=== PATIENT | female | born 1970 | race Caucasian/White ===

== ENCOUNTER 2016-06-17 11:50 | Emergency (ER) | payer OTHER ==
[2016-06-17 13:56] VITALS: BP 141/62
--- NOTE | 2016-06-17 14:24 | UC ---
Hand/Wrist HPI - HPI Summary HPI Summary: While cleaning up broken glass and debris, leaned against wall and thinks a shard of glass went through thick work glove and into L hand. Has bruised area and PW at base of L 4th MC on palm. Tried soaking the hand but still feels very sharp sensation with movement of L 4th finger and hand use, worried about FB. - History Of Current Complaint Chief Complaint: UCUpperExtremity Stated Complaint: GLASS IN HAND Time Seen by Provider: 06/17/16 14:00 Hx Obtained From: Patient Hx Last Menstrual Period: 06/16/16 ?: No Onset/Duration: Sudden Onset Severity Initially: Mild Severity Currently: Mild Character Of Pain: Sharp Aggravating Factor(s): Movement Alleviating: Rest Associated Signs And Symptoms: Positive: Bruising Related History: Dominant Hand Right - Allergies/Home Medications Allergies/Adverse Reactions: Allergies Allergy/AdvReac Type Severity Reaction Status Date / Time NSAIDs Allergy Anaphylatic Verified 06/17/16 13:57 Shock Shellfish Allergy Allergy Anaphylatic Verified 06/17/16 13:56 Shock IV CONTRAST Allergy Anaphylatic Uncoded 06/17/16 13:56 Shock Home Medications: Home Medications Sertraline HCl [Zoloft] 100 mg PO DAILY 06/17/16 [History Confirmed 06/17/16] PMH/Surg Hx/FS Hx/Imm Hx Endocrine History Of: Reports: Thyroid Disease - [facility] Cancer History Of: Denies: Breast Cancer - Surgical History Surgical History: None - Family History Known Family History: Positive: Diabetes - Social History Occupation: Employed Full-time - works in office setting Alcohol Use: Rare Substance Use Type: None Smoking Status (MU): Never Smoked Tobacco Review of Systems Constitutional: Negative Skin: Other - PW L palm Eyes: Negative ENT: Negative Respiratory: Negative Cardiovascular: Negative Gastrointestinal: Negative Genitourinary: Negative Motor: Negative Neurovascular: Negative Musculoskeletal: Negative Neurological: Negative Psychological: Negative All Other Systems Reviewed And Are Negative: Yes Physical Exam Triage Information Reviewed: Yes Appearance: Well-Appearing, Well-Nourished, Pain Distress - with Vital Signs: Initial Vital Signs Temp 97.5 F 06/17/16 13:53 Pulse 67 06/17/16 13:53 Resp 16 06/17/16 13:53 BP 141/62 06/17/16 13:53 Pulse Ox 100 06/17/16 13:53 Vital Signs Reviewed: Yes Eye Exam: Normal Eyes: Positive: Conjunctiva Clear ENT Exam: Normal ENT: Positive: Normal ENT inspection, Hearing grossly normal, Pharynx normal, TMs normal Dental Exam: Normal Neck exam: Normal Neck: Positive: Supple, Nontender, No Lymphadenopathy Respiratory Exam: Normal Respiratory: Positive: Chest non-tender, Lungs clear, Normal breath sounds, No respiratory distress, No accessory muscle use Cardiovascular Exam: Normal Cardiovascular: Positive: RRR, No Murmur Musculoskeletal: Positive: ROM Limited @ - L 4th finger pain with movement Neurological Exam: Normal Psychological Exam: Normal Skin Exam: Other - PW, bruising at base of L 4th finger Hand/Wrist Course/Dx - Differential Dx/Diagnosis Provider Diagnoses: Retained glass foreign body L hand Discharge - Discharge Plan Condition: Stable Disposition: HOME Prescriptions: Cephalexin CAP* [Keflex CAP*] 500 mg PO QID #20 cap Patient Education Materials: Soft Tissue Foreign Body (ED) Referrals: Sabas Brown MD [Medical Doctor] - Sayra Cunningham MD [Medical Doctor] - Additional Instructions: Please arrange for a follow-up visit with a hand surgeon in DR. BROWN' office. If they are unable to accommodate you this week, you can contact Dr. Cunningham's office. If you have increasing redness, swelling, severe pain, or red streaks coming from the wound, please go to the emergency department or return here right away.
[2016-06-17] MEDS ORDERED: Lidocaine 2% PF* 5 ML VIAL ONE (14:31)
--- NOTE | 2016-06-17 14:36 | RAD ---
INDICATION: Evaluate for foreign body COMPARISON: None TECHNIQUE: AP, lateral, and oblique views were obtained. FINDINGS: The bony structures, joint spaces, and soft tissues are normal for age. IMPRESSION: NO FRACTURE OR FOREIGN BODY.
== END 2016-06-17 15:05 | disposition home or self-care (01) ==
LOC: UCEAST 11:50
DX: S60.552A Superficial foreign body of left hand, initial encounter (principal); Z91.041 Radiographic dye allergy status; Z91.013 Allergy to seafood; Z18.81 Retained glass fragments; X58.XXXA Exposure to other specified factors, initial encounter; E06.3 Autoimmune thyroiditis
CPT/HCPCS: 73140; 99203; G0463